=== PATIENT | female | born 1975 | race Caucasian/White ===

== ENCOUNTER 2016-06-11 06:56 | Emergency (ER) | payer OTHER ==
[~2016-06-11] VITALS: Ht 160 cm; Wt 81.6 kg
--- NOTE | 2016-06-11 07:13 | ED CARDIAC/CP/PALPITATIONS ---
History of Present Illness General Chief Complaint: Chest Pain Stated Complaint: CP Source: patient, family Exam Limitations: no limitations Vital Signs & Intake/Output Vital Signs & Intake/Output Vital Signs Date Time Temp Pulse Resp B/P Pulse O2 O2 Flow FiO2 Ox Delivery Rate 06/11 1105 97.2 61 16 122/74 98 Room Air 06/11 0918 97.8 60 17 118/68 100 Room Air 06/11 0714 98 Room Air 06/11 0713 97.4 61 18 112/70 99 Room Air Allergies Coded Allergies: morphine (Mild, ITCHINESS 06/11/16) Reconcile Medications No Known Home Medications Triage Note: 41 YO FEMALE TO ER C/O CHEST PAIN THAT RADITES TO HER L BREAST AND L SHOULDER BLADE. STATES THE PAIN WOKE HER UP THIS AM OUT OF HER SLEEP. DENIES SOB AT THIS TIME, STATES "WHEN THE PAIN CAME I WAS SOB" PT STATES SHE TOOK 2 BABY ASPIRIN THIS AM. PT NSR ON MONITOR. MD AT BEDSIDE FOR EVAL. Triage Nurses Notes Reviewed? yes : No Patient currently breastfeeds: No HPI: Patient was woken this morning by a sharp pain in her left scapula that radiated through to the front of her chest. The pain is constant. There are no aggravating or mitigating factors. Patient denies any shortness of breath. Patient states that she has been having similar symptoms intermittently for the past 2 weeks. The pain will last a few seconds and then go away however this morning it lasted over 5 minutes. At its worst the pain was a 6 out of 10 and is currently 0 out of 10. Past History Travel History Traveled to [place] past 21 day No Medical History Any Pertinent Medical History? see below for history Neurological: NONE EENT: NONE Cardiovascular: NONE Respiratory: NONE Gastrointestinal: NONE Hepatic: NONE Renal: NONE Musculoskeletal: NONE Psychiatric: NONE Endocrine: NONE Blood Disorders: LUPUS Cancer(s): NONE GOLD NIB GRINDER/Reproductive: NONE Surgical History Surgical History: non-contributory Psychosocial History What is your primary language Wolof Tobacco Use: Never used ETOH Use: occasional use Illicit Drug Use: denies illicit drug use Family History Hx Contributory? No Review of Systems Review of Systems Constitutional: Reports: no symptoms. EENTM: Reports: no symptoms. Respiratory: Reports: no symptoms. Cardiovascular: Reports: see HPI, chest pain. GI: Reports: no symptoms. Genitourinary: Reports: no symptoms. Musculoskeletal: Reports: no symptoms. Skin: Reports: no symptoms. Neurological/Psychological: Reports: no symptoms. Hematologic/Endocrine: Reports: no symptoms. Immunologic/Allergic: Reports: no symptoms. All Other Systems: Reviewed and Negative Physical Exam Physical Exam General Appearance: well developed/nourished, alert, awake, mild distress Head: atraumatic, normal appearance Eyes: Bilateral: PERRL, EOMI. Ears, Nose, Throat: normal pharynx, normal ENT inspection Neck: normal inspection, supple, full range of motion Respiratory: normal breath sounds, chest non-tender, no respiratory distress, lungs clear Cardiovascular: regular rate/rhythm, normal peripheral pulses Gastrointestinal: normal bowel sounds, soft, non-tender Back: normal inspection, normal range of motion Extremities: normal inspection, normal capillary refill, normal range of motion, no edema Neurologic/Psych: no motor/sensory deficits, awake, alert, oriented x 3, normal gait, normal mood/affect Skin: intact, normal color, warm/dry Lymphatic: no anterior cervical radha Core Measures ACS in differential dx? Yes ASA ordered for poss ACS? Yes-ordered Severe Sepsis Present: No Septic Shock Present: No Progress Differential Diagnosis: AMI, aortic dissection, cholecystitis, costochondritis, hyperthyroid, musculoskeletal pain, myocarditis, pericarditis, pneumonia, pneumothorax, pulmonary embolism Plan of Care: Orders Procedure Date/time Status Regular Diet 06/11 L Active TROPONIN LEVEL 06/11 1200 Complete EKG 06/11 1200 Active Telemetry/Subcontract Manager 06/11 0712 Active TROPONIN LEVEL 06/11 0711 Complete D-DIMER 06/11 0711 Complete COMPREHENSIVE METABOLIC PANEL 06/11 0711 Complete CBC WITHOUT DIFFERENTIAL 06/11 0711 Complete EKG 06/11 0700 Active Laboratory Tests 06/11/16 1211: Troponin I < 0.01 06/11/16 0712: Anion Gap 6, Estimated GFR > 60, BUN/Creatinine Ratio 14.4, Glucose 113 H, Calcium 9.2, Total Bilirubin 0.4, AST 20, ALT 33, Alkaline Phosphatase 51, Troponin I < 0.01, Total Protein 6.7, Albumin 3.8, Globulin 2.9, Albumin/ Globulin Ratio 1.3, D-Dimer < 200, CBC w Diff NO MAN DIFF REQ, RBC 4.88, MCV 87.2, MCH 29.3, RDW 13.7, MPV 9.2, Gran % 50.3, Lymphocytes % 40.5, Monocytes % 6.6, Eosinophils % 2.2, Basophils % 0.4, Absolute Granulocytes 3.0, Absolute Lymphocytes 2.4, Absolute Monocytes 0.4, Absolute Eosinophils 0.1, Absolute Basophils 0, PUBS MCHC 33.6 Diagnostic Imaging: Viewed by Me: Radiology Read. Discussed w/RAD: Radiology Read. CXR Impression: PATIENT: SARAH EDWARD PRESENT AGE: 41 PATIENT ACCOUNT NO: [id number] : 74 LOCATION: [facility] ORDERING PHYSICIAN: BARBARA KENNY MD SERVICE DATE: 06/11/16 EXAM TYPE: RAD - XRY- PORTABLE CHEST XRAY EXAMINATION: XR PORTABLE CHEST CLINICAL INFORMATION: Chest pain COMPARISON: 05/28/2008 TECHNIQUE: Portable AP view of the chest was obtained. FINDINGS: No significant abnormality is noted involving the heart, lungs, mediastinum, bony thorax or soft tissues. IMPRESSION: Normal examination. DICTATED BY: KAIDEN SWANN MD DATE/TIME DICTATED:06/11/16754 CONSOLIDATION ACCOUNTANT:ENDER DATE/TIME TRANSCRIBED:06/11/16754 CONFIDENTIAL, DO NOT COPY WITHOUT APPROPRIATE AUTHORIZATION. <Electronically signed in Other Vendor System> SIGNED BY: KAIDEN SWANN MD 06/11/16 08 Initial ED EKG: NSR, no ST T wave changes Prior EKG: unchanged Repeat EKG: unchanged Rhythm Strip: normal sinus rhythm Departure Departure Disposition: HOME OR SELF CARE Condition: Stable Clinical Impression Primary Impression: Chest pain Qualifiers: Chest pain type: other chest pain Qualified Code: R07.89 - Other chest pain Referrals: JOSE MANUEL ABARCA MD (PCP/Family) HENRIQUE HUERTA MD Additional Instructions: REUTRN IF SYMPTOMS WORSEN OR FOR ANY CONCERNS Departure Forms: Customer Survey General Discharge Information Prescriptions: Current Visit Scripts No Known Home Medications Critical Care Note Critical Care Note Critical Care Time: non-applicable
[2016-06-11 07:39] LABS: ABSOLUTE BASOPHIL COUNT 0 /CUMM (0.0-0.2); ABSOLUTE EOSINOPHIL COUNT 0.1 /CUMM (0.0-0.7); ABSOLUTE LYMPH COUNT 2.4 /CUMM (1.2-3.4); ABSOLUTE MONOCYTE COUNT 0.4 /CUMM (0.10-0.60); BASOPHIL % 0.4 % (0.0-2.0); EOSINOPHIL % 2.2 % (0-5); GRANULOCYTE % 50.3 % (42.2-75.2); HEMATOCRIT 42.5 % (37-47); MEAN CORPUSCULAR HGB 29.3 PG (27.0-31.0); MEAN CORPUSCULAR HGB CONC 33.6 G/DL (33.0-37.0); MEAN CORPUSCULAR VOLUME 87.2 FL (81.0-99.0); MEAN PLATELET VOLUME 9.2 FL (7.4-10.4); PLATELET COUNT 306 /CUMM (130-400); RBC DISTRIBUTION WIDTH 13.7 % (11.5-14.5); RED BLOOD CELL CT 4.88 /CUMM (4.20-5.40)
--- NOTE | 2016-06-11 08:11 | RADIOLOGY REPORT ---
EXAMINATION: XR PORTABLE CHEST CLINICAL INFORMATION: Chest pain COMPARISON: 05/28/2008 TECHNIQUE: Portable AP view of the chest was obtained. FINDINGS: No significant abnormality is noted involving the heart, lungs, mediastinum, bony thorax or soft tissues. IMPRESSION: Normal examination.
[2016-06-11 13:13] VITALS: BP 126/85
== END 2016-06-11 13:51 ==
LOC: ERH 06:56
PROVIDERS: Emergency Medicine
DX: R07.9 Chest pain, unspecified (principal)
CPT/HCPCS: 93005; 93010